=== PATIENT | female | born 1995 | race Caucasian/White ===

== ENCOUNTER 2019-07-23 17:45 | Emergency (ER) | payer OTHER ==
[2019-07-23] MEDS ORDERED: ACETAMINOPHEN 325 MG TABLET (FP) PO ONE (18:00)
[2019-07-23] MEDS ORDERED: ACETAMINOPHEN 325 MG TABLET (FP) ONE (18:02)
--- NOTE | 2019-07-23 18:04 | PDOC ---
History of Present Illness - General Chief Complaint: Pain Stated Complaint: LEFT ANKLE PAIN Time Seen by Provider: 07/23/19 17:56 History Source: Patient Exam Limitations: No Limitations - History of Present Illness Initial Comments: 07/23/19 18:00 23 YOF presenting with worsening left ankle pain and swelling x 1 day, s/p trip and fall on wet ground yesterday. no head injury or LOC. denies paresthesias, weakness. Review of Systems Constitutional: no fevers or chills. MUSCULOSKELETAL: + joint pain and swelling. No muscle pain/arthralgias. Back: no back pain SKIN: +bruising. no lacerations, no discharge, no rash. No wounds. Hematologic: no easy bruising/bleeding. NEUROLOGIC: No weakness, numbness or tingling. Allergic/Immunologic: no allergies All other systems reviewed and negative, or as documented in HPI. physical exam General: NAD, well appearing Abdomen: soft, no tenderness, nondistended Vascular: 2+ DP pulses symmetric and equal. Back: no midline tenderness, no stepoffs, FROM MSK: soft compartments, Cap refill <2 sec. +left lateral malleolar and foot TTP with overlying swelling and faint ecchymosis. +tenderness to lateral and posterior malleolus, +lateral foot tenderness. no palp deformity. Proximal and distal strength 5/5, - equal and symmetric. Plantar flexion and dorsiflexion 5/5. FROM. Sensation grossly intact to light touch. No calf tenderness. no prox fibular tenderness. Neuro: alert, no focal neurologic deficits Skin: color normal color, warm and well perfused. Cap refill <2 sec. Past History - Past Medical History Allergies/Adverse Reactions: Allergies Allergy/AdvReac Type Severity Reaction Status Date / Time No Known Allergies Allergy Verified 07/23/19 17:47 Home Medications: Ambulatory Orders Quetiapine Fumarate [Seroquel -] 100 mg PO HS 07/23/19 Anemia: No Asthma: No Cancer: No Cardiac Disorders: No CVA: No COPD: No CHF: No Dementia: No Diabetes: No GI Disorders: No Disorders: No HTN: No Hypercholesterolemia: No Liver Disease: No Psychiatric Problems: Yes (ANXIETY, DEPRESSION) Seizures: No Thyroid Disease: No - Psycho Social/Smoking Cessation Hx Smoking History: Current every day smoker Have you smoked in the past 12 months: Yes Number of Cigarettes Smoked Daily: 10 'Breaking Loose' booklet given: 08/12/14 Hx Alcohol Use: (unknown) Drug/Substance Use Hx: (unknown) Hx Substance Use Treatment: (unknown) Procedures - Splinting Splint Location: Left: Ankle Pre-Proc Neuro Vasc Exam: normal Hand-Made Type: orthoglass Splint Type: Yes: Posterior, Short Leg Post-Proc Neuro Vasc Exam: normal Charles Bandage: yes Sling: No Complications: No Post splint xray: No Good repositioning: Yes ED Treatment Course - RADIOLOGY Radiology Studies Ordered: Category Date Time Status ANKLE & FOOT-LEFT* [RAD] Stat Radiology 07/23/19 17:59 Ordered LEG TIB/FIB-LEFT [RAD] Stat Radiology 07/23/19 17:59 Ordered Medical Decision Making - Medical Decision Making 07/23/19 18:03 Vital Signs Temp Pulse Resp BP Pulse Ox 99 F 92 H 16 120/79 99 07/23/19 17:47 07/23/19 17:47 07/23/19 17:47 07/23/19 17:47 07/23/19 17:47 VS reviewed, wnl ddx ankle fx, tib-fib fx, foot fx, lisfranc, hein fx. contusion, hematoma. Xray left distal fibula fx, no tibial fx. ankle mortise is preserved, no joint space widening. no foot fractures, normal appearing metatarsals. no joint dislocations. ortho cs with Dr Conklin provider relations rep, spoke with Esther, agree with plan. posterior ankle splint with orthoglass for immobilization/stabilization.. neurovasc intact after splint. no suggestions of compartment syndrome, pt given warning signs. Discussed results with patient. Rest ice and elevation. Pain control with OTC meds including motrin/tylenol as needed every 6 hours; no narcotics needed. Ortho followup provided. Crutches to assist with ambulation, WBAT. Please return to ED for increased pain, weakness, numbness/tingling, fever, or redness. f/u Dr Conklin or Ade in 1 week for definitive management. 07/23/19 19:07 07/24/19 09:35 07/24/19 09:38 07/24/19 09:39 Discharge - Discharge Information Problems reviewed: Yes Clinical Impression/Diagnosis: Closed left fibular fracture Qualifiers: Encounter type: initial encounter Fibula location: distal Fracture morphology: other fracture Qualified Code(s): S82.832A - Other fracture of upper and lower end of left fibula, initial encounter for closed fracture Condition: Stable Disposition: HOME - Admission No - Follow up/Referral Referrals: Billy Conklin MD [Staff Physician] - Sacha Wallis MD [Staff Physician] - - Patient Discharge Instructions Patient Printed Discharge Instructions: How to Use Crutches, DI for Ankle Fracture Additional Instructions: You have a left ankle fracture involving a nonweight bearing bone called the fibula. Avoid heavy lifting or strenuous activity to minimize further injury you are immobilized in a splint, crutches to help you with walking as tolerated. RICE rest ice elevate the affected area Rest, Ice (20 minutes at a time, 3 times a day), Compression (CHARLES wrap or splint ), Elevation (above the heart). Apply ice to the area for 10 minutes every 2 hours for the first 2 days after the injury to reduce swelling. avoid being bed bound and immobile. If you have any worsening of symptoms, including severe pain/swelling/redness/ numbness/changes in sensation/weakness/paralysis or any other concerns please return to the Emergency Department immediately. You were given a copy of the results from any tests performed today in the Emergency Department which have results available. Show these to your doctor(s). Some of the tests we sent may not have results yet so please call or have your doctor call the Emergency Department to follow up on all results. Please continue taking your home medications as directed. Do not use alcohol when taking any medication ( especially antibiotics, tylenol or other pain medication) unless you check with the doctor or pharmacist. -May take ibuprofen 400-600mg and/or tylenol 650 to 975 mg every 6 hours as needed for mild to moderate pain, available over the counter. This does not require narcotics, as it will precipitate injuries and falls. Please follow up with your orthopedist (referrals given) within the next 1 week , but seek medical care sooner if your symptoms persist or worsen. Please call as soon as possible for an appointment. If you cannot follow up with your doctor please return to the Emergency Department for any urgent issues. Follow up with your primary care physician in 1 week if symptoms persist, or with orthopedics specialists if needed, referrals have been provided. - Post Discharge Activity Work/Back to School Note: Back to Work
[2019-07-23 18:16] VITALS: BP 120/79; PULSE 92; TEMP 99; BMI 35.0
== END 2019-07-23 19:24 | disposition home or self-care (01) ==
LOC: FER 17:45
PROC: 2W3RX1Z Immobilization of Left Lower Leg using Splint (ICD-10-PCS; principal; 2019-07-23)
DX: S82.832A Other fracture of upper and lower end of left fibula, initial encounter for closed fracture (principal); X58.XXXA Exposure to other specified factors, initial encounter; Y93.89 Activity, other specified; Y92.89 Other specified places as the place of occurrence of the external cause; F41.8 Other specified anxiety disorders
CPT/HCPCS: 73610-TC-LT-FY; 73630-TC-LT; 99282-25